=== PATIENT | male | born 1965 | race Caucasian/White ===

== ENCOUNTER 2017-05-02 11:42 | Emergency (ER) | payer MEDICARE, MEDICAID ==
[~2017-05-02] VITALS: Ht 175.3 cm; Wt 60.3 kg
[2017-05-02 12:34] LABS: BASOPHILS % (AUTO) 0.8 % (0-1); EOSINOPHILS # (AUTO) 0.2 X10'3 (0-0.9); EOSINOPHILS % (AUTO) 3.3 % (0-6); HEMATOCRIT 45.7 % (42.0-52.0); HEMOGLOBIN 15.6 g/dl (14.0-17.9); LYMPHOCYTES # (AUTO) 1.7 X10'3 (1.1-4.8); LYMPHOCYTES % (AUTO) 27.2 % (21-51); MEAN CORPUSCULAR HEMOGLOBIN 29.6 PG (27.0-31.0); MEAN CORPUSCULAR HGB CONC 34.1 % (33.0-36.5); MEAN CORPUSCULAR VOLUME 86.7 FL (78-98); MONOCYTES # (AUTO) 0.6 X10'3 (0-0.9); MONOCYTES % (AUTO) 8.7 % (2-12); NEUTROPHILS # (AUTO) 3.8 X10'3 (1.8-7.7); PLATELET COUNT 333 X10'3 (140-440); RED BLOOD COUNT 5.27 X10'6 (4.70-6.10); RED CELL DISTRIBUTION WIDTH 14.4 % (11.5-14.5); WHITE BLOOD COUNT 6.4 X10'3 (4.5-11.0)
[2017-05-02 12:50] LABS: ALANINE AMINOTRANSFERASE 21 U/L (12-78); ALBUMIN 3.7 G/DL (3.4-5.0); ALBUMIN/GLOBULIN RATIO 0.8 (1.1-1.5); ALKALINE PHOSPHATASE 98 IU/L (46-116); ANION GAP 9 (8-16); ASPARTATE AMINO TRANSFERASE 14 U/L (10-37); BILIRUBIN,TOTAL 0.3 MG/DL (0.1-1.0); BLOOD UREA NITROGEN 9 MG/DL (7-18); BUN/CREATININE RATIO 8.2 (5.4-32.0); CALCIUM 9.1 MG/DL (8.5-10.1); CHLORIDE 104 MMOL/L (99-107); ETHANOL < 0.010 GM/DL (0.0-0.010); GLUCOSE 97 MG/DL (70-104); POTASSIUM 4.1 MMOL/L (3.5-5.1); SODIUM 143 MMOL/L (135-145); TOTAL CARBON DIOXIDE 29.7 MMOL/L (24-32); TOTAL PROTEIN 8.6 G/DL (6.4-8.2); eGFR 71 ML/MIN
[2017-05-02] MEDS ORDERED: BENZ1TAB7 PO (13:45)
[2017-05-02] MEDS ORDERED: PRAZ1CAP5 PO (13:45)
[2017-05-02 13:46] LABS: CLARITY,URINE CLEAR (Clear); COLOR,URINE STRAW (Yellow); GLUCOSE, URINE NEGATIVE (Neg); KETONES,URINE NEGATIVE (Neg); LEUKOCYTE ESTERASE ,URINE NEGATIVE (Neg); NITRITES, URINE NEGATIVE (Neg); OCCULT BLOOD,URINE NEGATIVE (Neg); PH,URINE 7.5 (4.8-8.0); PROTEIN,URINE NEGATIVE (Neg); UA COLLECTION TYPE CLN CATCH MIDSTREAM; UROBILINOGEN,URINE 0.2 E.U/dL (0.2-1.0)
[2017-05-02] MEDS ORDERED: SERT100T PO (13:46)
[2017-05-02] MEDS ORDERED: PILO5TAB PO (13:47)
[2017-05-02] MEDS ORDERED: QUET-1 PO (13:52)
[2017-05-02] MEDS ORDERED: ARIP5TAB4 PO (13:53)
[2017-05-02] MEDS ORDERED: OMEP20CA10 PO (13:55)
[2017-05-02 13:57] LABS: URINE AMPHETAMINE SCREEN POSITIVE (Neg); URINE BARBITUATE SCREEN NEGATIVE (Neg); URINE BENZODIAZEPINES SCREEN NEGATIVE (Neg); URINE CANNABINOID SCREEN POSITIVE (Neg); URINE COCAINE SCREEN NEGATIVE (Neg); URINE METHADONE SCREEN NEGATIVE (Neg); URINE OPIATE SCREEN NEGATIVE (Neg); URINE PHENCYCLIDINE SCREEN NEGATIVE (Neg)
[2017-05-02 16:40] VITALS: BP 118/86
== END 2017-05-02 16:43 ==
LOC: ER 11:43
DX: F20.9 Schizophrenia, unspecified (principal); F29 Unspecified psychosis not due to a substance or known physiological condition; Z88.5 Allergy status to narcotic agent; Z79.899 Other long term (current) drug therapy
CPT/HCPCS: 36415; 80053; 80305; 80320; 81003; 84443; 85025; 99285

== ENCOUNTER 2017-05-02 14:15 | Inpatient (IN) | payer MEDICARE, MEDICAID ==
[~2017-05-02] VITALS: Ht 172.7 cm; Wt 63.1 kg
[~2017-05-02 14:15] MED LIST: ARIP5TAB4 PO; BENZ1TAB7 PO; OMEP20CA10 PO; PILO5TAB PO; PRAZ1CAP5 PO; QUET-1 PO; SERT100T PO
[2017-05-02 17:05] VITALS: BP 116/81
[2017-05-02] MEDS ORDERED: PILOCARPINE HCL 5 MG PO PRN (17:45)
[2017-05-02] MEDS: mag hydrox/Alum hydrox/simeth 30ml oral suspension PO PRN (18:57)
[2017-05-02 20:00] VITALS: BP 111/80
[2017-05-02] MEDS ORDERED: quetiapine 100mg tablet PO SCH (21:00)
[2017-05-02] MEDS: benztropine 1mg tablet PO SCH (21:09)
[2017-05-02] MEDS: prazosin 1mg capsule PO SCH (21:10)
[2017-05-03] MEDS ORDERED: aripiprazole 5mg tablet PO SCH (08:00)
[2017-05-03] MEDS ORDERED: sertraline 50mg tablet PO SCH (08:00)
[2017-05-03] MEDS: benztropine 1mg tablet PO SCH ×2 (08:04→20:19)
[2017-05-03] MEDS: pantoprazole 40mg Tablet.DR PO SCH (08:04)
[2017-05-03 08:13] VITALS: BP 107/75
[2017-05-03] MEDS: mag hydrox/Alum hydrox/simeth 30ml oral suspension PO PRN (10:21)
[2017-05-03] MEDS: calcium carbonate 500mg chew tablet PO SCH (17:36)
[2017-05-03 19:48] VITALS: BP 103/77
[2017-05-03 21:00] VITALS: BP 96/60
[2017-05-03] MEDS ORDERED: QUEtiapine 25mg tablet PO SCH (21:00)
[2017-05-03] MEDS ORDERED: traZODone 50mg tablet PO SCH (21:00)
[2017-05-03] MEDS: prazosin 1mg capsule PO SCH (21:00)
[2017-05-04 06:28] LABS: ALANINE AMINOTRANSFERASE 18 U/L (12-78); ALBUMIN 3.2 G/DL (3.4-5.0); ALBUMIN/GLOBULIN RATIO 0.8 (1.1-1.5); ALKALINE PHOSPHATASE 84 IU/L (46-116); ANION GAP 9 (8-16); ASPARTATE AMINO TRANSFERASE 13 U/L (10-37); BASOPHILS # (AUTO) 0.1 X10'3 (0-0.2); BASOPHILS % (AUTO) 0.8 % (0-1); BILIRUBIN,TOTAL 0.3 MG/DL (0.1-1.0); BLOOD UREA NITROGEN 15 MG/DL (7-18); CALCIUM 8.8 MG/DL (8.5-10.1); CHLORIDE 103 MMOL/L (99-107); CHOL/HDL RATIO 4.7 (0.00-4.99); CHOLESTEROL 168 MG/DL (0-200); EOSINOPHILS # (AUTO) 0.4 X10'3 (0-0.9); EOSINOPHILS % (AUTO) 5.5 % (0-6); GLUCOSE 100 MG/DL (70-104); HDL CHOLESTEROL 36 MG/DL (35-60); HEMATOCRIT 45.8 % (42.0-52.0); HEMOGLOBIN 15.6 g/dl (14.0-17.9); LDL CHOLESTEROL 113 MG/DL (50-100); LYMPHOCYTES # (AUTO) 2.2 X10'3 (1.1-4.8); LYMPHOCYTES % (AUTO) 30.3 % (21-51); MEAN CORPUSCULAR HEMOGLOBIN 29.7 PG (27.0-31.0); MEAN CORPUSCULAR HGB CONC 33.9 % (33.0-36.5); MEAN CORPUSCULAR VOLUME 87.6 FL (78-98); MEAN PLATELET VOLUME 7.1 FL (7.4-10.4); MONOCYTES # (AUTO) 0.4 X10'3 (0-0.9); MONOCYTES % (AUTO) 5.6 % (2-12); NEUTROPHILS # (AUTO) 4.2 X10'3 (1.8-7.7); NEUTROPHILS % (AUTO) 57.8 % (42-75); PLATELET COUNT 316 X10'3 (140-440); POTASSIUM 4.1 MMOL/L (3.5-5.1); RED BLOOD COUNT 5.23 X10'6 (4.70-6.10); SODIUM 139 MMOL/L (135-145); TOTAL CARBON DIOXIDE 26.8 MMOL/L (24-32); TOTAL PROTEIN 7.2 G/DL (6.4-8.2); TRIGLYCERIDES 95 MG/DL (20-135); WHITE BLOOD COUNT 7.2 X10'3 (4.5-11.0); eGFR 79 ML/MIN
[2017-05-04 07:00] LABS: HEMOGLOBIN A1C 5.6 % (4.5-6.2)
[2017-05-04] MEDS: pantoprazole 40mg Tablet.DR PO SCH (07:25)
[2017-05-04 08:00] VITALS: BP 101/62
[2017-05-04] MEDS: nicotine 7mg patch - 24hr TD SCH (08:00)
[2017-05-04] MEDS ORDERED: venlafaxine XR 75mg capsule (Q24H) PO SCH (08:00)
[2017-05-04] MEDS ORDERED: sertraline 50mg tablet PO SCH (08:00)
[2017-05-04] MEDS: benztropine 1mg tablet PO SCH ×2 (08:27→20:32)
[2017-05-04] MEDS: calcium carbonate 500mg chew tablet PO SCH ×3 (08:28→17:19)
[2017-05-04 19:00] VITALS: BP 100/64
[2017-05-04] MEDS: traZODone 50mg tablet PO SCH (20:32)
[2017-05-04] MEDS: prazosin 1mg capsule PO SCH (20:34)
[2017-05-04] MEDS ORDERED: QUEtiapine 25mg tablet PO SCH (21:00)
[2017-05-05] MEDS: nicotine 7mg patch - 24hr TD SCH (07:09)
[2017-05-05] MEDS: pantoprazole 40mg Tablet.DR PO SCH (07:45)
[2017-05-05] MEDS: benztropine 1mg tablet PO SCH ×2 (08:19→21:00)
[2017-05-05] MEDS: venlafaxine XR 75mg capsule (Q24H) PO SCH (08:19)
[2017-05-05] MEDS: calcium carbonate 500mg chew tablet PO SCH ×3 (08:19→17:12)
[2017-05-05 08:39] VITALS: BP 100/79
[2017-05-05 19:09] VITALS: BP 94/70
[2017-05-05] MEDS: QUEtiapine 25mg tablet PO SCH (20:59)
[2017-05-05] MEDS: traZODone 50mg tablet PO SCH (21:00)
[2017-05-05] MEDS: prazosin 1mg capsule PO SCH (21:00)
[2017-05-06] MEDS: venlafaxine XR 75mg capsule (Q24H) PO SCH (07:23)
[2017-05-06] MEDS: benztropine 1mg tablet PO SCH ×2 (07:23→20:52)
[2017-05-06] MEDS: pantoprazole 40mg Tablet.DR PO SCH (07:23)
[2017-05-06] MEDS: nicotine 7mg patch - 24hr TD SCH (07:27)
[2017-05-06 08:00] VITALS: BP 98/74
[2017-05-06] MEDS: calcium carbonate 500mg chew tablet PO SCH ×3 (08:30→17:30)
[2017-05-06 19:30] VITALS: BP 102/70
[2017-05-06] MEDS: prazosin 1mg capsule PO SCH (20:52)
[2017-05-06] MEDS: QUEtiapine 25mg tablet PO SCH (20:53)
[2017-05-06] MEDS: traZODone 50mg tablet PO SCH (20:53)
[2017-05-06 23:54] VITALS: BP 93/70
[2017-05-07] MEDS: pantoprazole 40mg Tablet.DR PO SCH (07:29)
[2017-05-07] MEDS: benztropine 1mg tablet PO SCH ×2 (07:29→20:25)
[2017-05-07] MEDS: venlafaxine XR 75mg capsule (Q24H) PO SCH (07:30)
[2017-05-07] MEDS: nicotine 7mg patch - 24hr TD SCH (07:31)
[2017-05-07] MEDS: calcium carbonate 500mg chew tablet PO SCH ×3 (07:31→17:30)
[2017-05-07 08:00] VITALS: BP 96/63
[2017-05-07 19:10] VITALS: BP 109/76
[2017-05-07] MEDS: traZODone 50mg tablet PO SCH (20:25)
[2017-05-07] MEDS: prazosin 1mg capsule PO SCH (20:25)
[2017-05-07] MEDS: QUEtiapine 25mg tablet PO SCH (21:41)
[2017-05-08] MEDS: pantoprazole 40mg Tablet.DR PO SCH (07:44)
[2017-05-08] MEDS: venlafaxine XR 75mg capsule (Q24H) PO SCH (07:46)
[2017-05-08] MEDS: calcium carbonate 500mg chew tablet PO SCH (07:46)
[2017-05-08] MEDS: benztropine 1mg tablet PO SCH (07:46)
[2017-05-08] MEDS: nicotine 7mg patch - 24hr TD SCH (07:48)
[2017-05-08 08:00] VITALS: BP 103/67
[2017-05-08] MEDS ORDERED: BENZ1TAB7 PO (10:05)
[2017-05-08] MEDS ORDERED: VENL150T3 PO (10:05)
[2017-05-08] MEDS ORDERED: TRAZ-146 PO (10:05)
[2017-05-08] MEDS ORDERED: PANT40TA4 PO (10:05)
[2017-05-08] MEDS ORDERED: PRAZ1CAP5 PO (10:05)
[2017-05-08] MEDS ORDERED: QUET50TA22 PO (10:05)
== END 2017-05-08 14:10 | disposition home or self-care (01) | DRG 885 ==
LOC: ADULT MH 14:15
PROVIDERS: ADMIT Psychiatry & Neurology Psychiatry; ATTEND Psychiatry & Neurology Psychiatry
DX: F33.2 Major depressive disorder, recurrent severe without psychotic features (principal); R45.851 Suicidal ideations; K21.9 Gastro-esophageal reflux disease without esophagitis; F12.90 Cannabis use, unspecified, uncomplicated; F15.10 Other stimulant abuse, uncomplicated; F17.210 Nicotine dependence, cigarettes, uncomplicated; Z88.5 Allergy status to narcotic agent; Z79.899 Other long term (current) drug therapy; Z83.3 Family history of diabetes mellitus
CPT/HCPCS: 36415; 80053; 80061; 83036; 85025; 87070